=== PATIENT | female | born 1995 | race Caucasian/White ===

== ENCOUNTER 2018-08-05 03:23 | Inpatient (IN) ==
[2018-08-05] MEDS ORDERED: OXYTOCIN 30 UNITS/500 ML BAG IV PRN ×2 (03:44→05:42)
[2018-08-05] MEDS ORDERED: LACTATED RINGER'S 1,000 ML IV PRN (03:44)
[2018-08-05] MEDS ORDERED: ePHEDrine sulfate 50 MG/ML AMP ONE (03:51)
[2018-08-05] MEDS ORDERED: BUPIVACAINE 0.25% 30 ML VIAL ONE (03:51)
[2018-08-05] MEDS ORDERED: fentaNYL citrate 100 MCG/2 ML VIAL ONE (03:52)
[2018-08-05] MEDS ORDERED: fentaNYL 2MCG/ML ROPIV 1.25MG/ML 100 ML BAG EPI ONE (03:52)
[2018-08-05 04:10] LABS: Hematocrit (blood only) 33.6 % (37-47); Mean Corpuscular Volume 77.4 fL (80-100); Mean Platelet Volume 11.6 fL (7.4-10.4); Platelet Count 149 K/uL (130-400); RDW Coefficient of Variation 14.8 % (11.5-14.5); RDW Standard Deviation 42.1 fL (36.4-46.3); Red Blood Count 4.34 M/uL (4.2-5.4); White Blood Count 9.44 K/uL (4.8-10.8)
[2018-08-05 04:13] LABS: Mean Corpuscular Hgb Conc 32.7 g/dL (32-36)
--- NOTE | 2018-08-05 04:59 | History & Physical Report ---
Date of Service August 05, 2018 Assessment & Plan (1) 39 weeks gestation of : Will obtain urine drug screen on admission. Anticipate . Admit to L&D. History of Present Illness Chief Complaint: contractions Primary Care Provider: JAMIA PCP 22yo @ 39 6/7 with increasing contractions. No leaking fluid, no vaginal bleeding. + movement. complicated by maternal marijuana use. Also has +Anti M antibody. Allergies Allergy/AdvReac Type Severity Reaction Status Date / Time amoxicillin Allergy Severe HIVES Verified 07/07/18 19:49 Home Medications Home Medications Medication Instructions Recorded Confirmed Type ondansetron HCl [Zofran] 4 mg PO TID PRN 07/07/18 07/07/18 History vit no.[id number] 1 tab PO DAILY 07/07/18 07/07/18 History [ Vitamin] Patient History Social History Preferred Language: Sami Communication Ability: Effective Dispatch Officer Required: No Beliefs That Will Affect Care: None marital status: Single Current Living Situation: Family and Significant Other Current Living Situation Comment: Lives with S/O and 3 y/o daughter Other Information That Helps Us Care for You: No Feels Safe at Home: Yes Safety Concerns: Feels Safe At This Time Smoking Status: Former smoker Tobacco Type: cigarettes Cigarettes Per Day: 10 Second Hand Exposure: Yes (Pts boyfriend smokes) Hx Alcohol Use: No Hx Substance Use: No Review of Systems All systems reviewed & are unremarkable except as noted in HPI & below Physical Exam Physical Exam: Gen: AAOx3 NAD CV: RRR L: CTAB Abd: soft, gravid, NTTP Ext: no edema FHT: Cat 1 [place]: Q 2-3 min Results & Data Vital Signs (Past 12 Hours) Vital Signs Temp Pulse Resp BP 08/05/18 03:47 71 18 125/79 08/05/18 03:41 36.5 C 08/05/18 03:40 71 125/79
--- NOTE | 2018-08-05 05:02 | Procedure Note ---
Vaginal Delivery Summary Date of Service August 05, 2018 Vaginal Delivery Summary Vaginal Delivery Summary: Pre-delivery diagnoses: 22yo @ 39 6/7, spontaneous labor, maternal marijuana use, Anti-M titers positive Post-delivery diagnoses: same Procedure: spontaneous vaginal delivery Surgeon: Britney Rashid DO Complications: none Findings: Viable female . Apgars: 8/9 . Weight pending, please see nursery records Estimated blood loss: 300ml Description of delivery: The patient progressed to complete without anesthesia. She then began to push. She spontaneously vaginally delivered a viable female from the cephalic presentation. The head delivered in LETITIA position. The anterior shoulder delivered, followed by the posterior shoulder, followed by the body. The baby was placed on mother's abdomen and a spontaneous cry was heard. Delayed cord clamping was employed, and the cord was doubly clamped and cut. Cord blood was obtained. The placenta was delivered spontaneously intact with a 3-vessel cord. The uterus and vagina were swept of clots and debris. IV pitocin was given. The uterus became firm. The cervix, vagina, and perineum were inspected and a superficial left labial laceration was noted, not repaired because it was hemostatic. Excellent hemostasis was observed. The mother and baby are recovering in stable and good condition in the room. Sponge and instrument counts were correct x 2. Britney Rashid [place] [facility] [place]
[2018-08-05] MEDS ORDERED: HYDROCORTISONE ACETATE 25 MG SUPP PR PRN (05:42)
[2018-08-05] MEDS ORDERED: SUPERCREAM 0.870% 15 GM JAR EXT PRN (05:42)
[2018-08-05] MEDS ORDERED: OXYCODONE/ACETAMINOPHEN 5mg/325mg TAB PO PRN (05:42)
[2018-08-05] MEDS ORDERED: DIPHTHERIA/TETANUS/PERTUSSIS 0.5 ML SYR/VIAL IM ONE (05:42)
[2018-08-05] MEDS ORDERED: BISACODYL 10 MG SUPP PR PRN (05:42)
[2018-08-05] MEDS ORDERED: BENZOCAINE 20% AER SPR 82.5 GM CAN EXT PRN (05:42)
[2018-08-05 05:47] LABS: Amphetamines+Metham, Urine Neg (Neg); Barbiturates, Urine Neg (Neg); Benzodiazepine, Urine Neg (Neg); Cocaine, Urine Neg (Neg); MDMA (Ecstacy), Urine Neg (Neg); Methadone, Urine Neg (Neg); Opiate, Urine Neg (Neg); Phencyclidine, Urine Neg (Neg)
[2018-08-05] MEDS: IBUPROFEN 600 MG TAB PO PRN ×2 (06:30→12:16)
[2018-08-05] MEDS: DOCUSATE SODIUM 100 MG CAP PO SCH ×2 (08:53→20:15)
[2018-08-05] MEDS: PRENATAL VITAMIN 1 TAB PO SCH (08:53)
[2018-08-05] MEDS: ACETAMINOPHEN 325 MG TAB PO PRN (16:27)
[2018-08-06] MEDS: ACETAMINOPHEN 325 MG TAB PO PRN ×3 (03:03→18:28)
--- NOTE | 2018-08-06 07:06 | Obstetrical Progress Note ---
Date of Service <Krish Dia - Last Filed: 08/06/18 07:06> August 06, 2018 Assessment & Plan <Krish Dia DO - Last Filed: 08/06/18 07:06> (1) (spontaneous vaginal delivery): -vital signs reviewed and WNL -last Hgb 11.0 -Blood type: A+, GBS-, Rubella Immune -pt doing well clinically -encourage ambulation, monitor and control pain with motrin tylenol, cont regular diet, monitor lochia -cont encourage breast feeding -anticipate d/c tomorrow Subjective <Krish ZayCesia Dia - Last Filed: 08/06/18 07:06> 22 y/o PPD1 found in bed this morning in NAD. Reports no acute overnight events. Pt states that she has no pain other than appropriate soreness. Tolerating PO intake without N/V. Able to ambulate without issue. She is breast feeding without issue. No issues with voiding, no BM yet but passing gas. No other acute concerns or complaints. Review of Systems All systems reviewed & are unremarkable except as noted in HPI & below Physical Exam <Krish Dia - Last Filed: 08/06/18 07:06> Constitutional WD/WN, vitals as above Respiratory normal respiratory effort, lungs clear to auscultation Cardiovascular RRR, no murmur, no edema Gastrointestinal (Abdomen) mild abd tenderness Fundus at U, correlate with attending findings Skin no rashes, warm and dry Psychiatric A+Ox3, euthymic affect Lymphatic no LE swelling, no calf tenderness Results & Data <Krish ZayCesia Dia - Last Filed: 08/06/18 07:06> Vital Signs (Past 12 Hours) Vital Signs Temp Pulse Resp BP Pulse Ox 08/06/18 03:05 36.7 C 65 16 132/85 98 08/05/18 23:00 37 C 76 14 108/65 97 08/05/18 19:25 36.7 C 79 16 123/83 97 Medications Administered Current Inpatient Medications Acetaminophen (Tylenol) 650 mg PO Q6H PRN PRN Reason: Pain/MUNOZ/Fever Stop: 09/04/18 05:41 Last Admin: 08/06/18 03:03 Dose: 650 mg Documented by: Benzocaine (Dermoplast Pain Relieving [place]) 1 appln EXT PRN PRN PRN Reason: Perineal Discomfort Stop: 09/04/18 05:41 Bisacodyl (Dulcolax) 10 mg OR DAILY PRN PRN Reason: No BM on 2nd post- day Stop: 09/04/18 05:41 Bisacodyl (Dulcolax) 5 mg PO 1999 [facility] Stop: 08/06/18 20:01 Cocaine HCl (Supercream 0.870%) 1 gm EXT BID PRN PRN Reason: Hemorrhoidal Inflammation Stop: 08/19/18 05:41 Docusate Sodium (Colace) 100 mg PO DAILY@08, [facility] Stop: 09/04/18 07:59 Last Admin: 08/05/18 20:15 Dose: 100 mg Documented by: Hydrocortisone (Anusol Hc) 25 mg OR BID PRN PRN Reason: Hemorrhoidal Inflammation Stop: 09/04/18 05:41 Oxytocin (Pitocin) 30 units in 500 mls @ 333.333 mls/hr IV .Q1H30M PRN; Protocol PRN Reason: Bleeding Control Stop: 09/04/18 05:41 Last Titration: 08/05/18 06:02 Dose: Infused Documented by: Ibuprofen (Motrin) 600 mg PO Q4H PRN PRN Reason: Pain/MUNOZ/Cramping/Fever Stop: 09/04/18 05:41 Last Admin: 08/05/18 12:16 Dose: 600 mg Documented by: Oxycodone/Acetaminophen (Percocet 5mg/325mg) 1 tab PO Q4H PRN PRN Reason: Pain not relieved by... Stop: 08/19/18 05:41 Prenat Multivit/[place]/Iron/Folic Ac ( Vitamin) 1 tab PO DAILY@08 [facility] Stop: 09/04/18 07:59 Last Admin: 08/05/18 08:53 Dose: 1 tab Documented by: <Jenny Mcneal MD, FACOG - Last Filed: 08/06/18 07:53> Co-Signing Physician Notes Resident Physician Supervision Note: I interviewed and examined the patient. Discussed with Dr. Paulina Dia and agree with findings and plan as documented in the note. Any exceptions or clarifications are listed here: [None] Documented By: Jenny Mcneal MD, FACOG Resident Activity Tracking <Krish Dia, DO - Last Filed: 08/06/18 07:06> Resident Involvement: Resident Care Provided Care Provided: OB Delivery
[2018-08-06 07:15] LABS: Hematocrit (blood only) 31.9 % (37-47); Hemoglobin 10.4 g/dL (12.0-16.0); Mean Corpuscular Hgb Conc 32.6 g/dL (32-36); Mean Corpuscular Volume 78.4 fL (80-100); Mean Platelet Volume 11.9 fL (7.4-10.4); Platelet Count 130 K/uL (130-400); RDW Standard Deviation 42.1 fL (36.4-46.3); Red Blood Count 4.07 M/uL (4.2-5.4); White Blood Count 9.91 K/uL (4.8-10.8)
[2018-08-06] MEDS ORDERED: MEASLES, MUMPS & RUBELLA VIRUS VIAL SQ ONE (07:23)
[2018-08-06] MEDS: DOCUSATE SODIUM 100 MG CAP PO SCH ×2 (07:52→21:00)
[2018-08-06] MEDS: PRENATAL VITAMIN 1 TAB PO SCH (07:52)
[2018-08-06] MEDS ORDERED: BISACODYL 5 MG TABEC PO SCH (20:00)
[2018-08-07] MEDS: ACETAMINOPHEN 325 MG TAB PO PRN (05:26)
--- NOTE | 2018-08-07 07:36 | Obstetrical Progress Note ---
Date of Service <Krish Dia, - Last Filed: 08/07/18 07:36> August 07, 2018 Assessment & Plan <Krish Dia DO - Last Filed: 08/07/18 07:36> (1) (spontaneous vaginal delivery): -vital signs reviewed and WNL -last Hgb 11.0 -Blood type: A+, GBS-, Rubella Immune -pt doing well clinically -encourage ambulation, monitor and control pain with motrin tylenol, cont regular diet, monitor lochia -cont encourage breast feeding -plan for d/c today Subjective <Krish ZayCesia Dia - Last Filed: 08/07/18 07:36> 22 y/o PPD2 found in bed this morning in NAD. Reports no acute overnight events. Pt states that she has no pain other than appropriate soreness. Tolerating PO intake without N/V. Able to ambulate without issue. She is breast feeding without issue. No issues with voiding, no BM yet but passing gas. No other acute concerns or complaints. Pt ok with plan for d/c today. Review of Systems All systems reviewed & are unremarkable except as noted in HPI & below Physical Exam <Krish Dia, - Last Filed: 08/07/18 07:36> Constitutional WD/WN, vitals as above Respiratory normal respiratory effort, lungs clear to auscultation Cardiovascular RRR, no murmur, no edema Gastrointestinal (Abdomen) mild abd tenderness Skin no rashes, warm and dry Psychiatric A+Ox3, euthymic affect Lymphatic no LE swelling, no calf tenderness Results & Data <Krish ZayCesia Dia, - Last Filed: 08/07/18 07:36> Vital Signs (Past 12 Hours) Vital Signs Temp Pulse Resp BP Pulse Ox 08/06/18 23:35 36.5 C 70 16 114/72 97 Medications Administered Current Inpatient Medications Acetaminophen (Tylenol) 650 mg PO Q6H PRN PRN Reason: Pain/MUNOZ/Fever Stop: 09/04/18 05:41 Last Admin: 08/07/18 05:26 Dose: 650 mg Documented by: Benzocaine (Dermoplast Pain Relieving [place]) 1 appln EXT PRN PRN PRN Reason: Perineal Discomfort Stop: 09/04/18 05:41 Bisacodyl (Dulcolax) 10 mg OR DAILY PRN PRN Reason: No BM on 2nd post- day Stop: 09/04/18 05:41 Cocaine HCl (Supercream 0.870%) 1 gm EXT BID PRN PRN Reason: Hemorrhoidal Inflammation Stop: 08/19/18 05:41 Docusate Sodium (Colace) 100 mg PO DAILY@08,21 [facility] Stop: 09/04/18 07:59 Last Admin: 08/06/18 21:00 Dose: 100 mg Documented by: Hydrocortisone (Anusol Hc) 25 mg OR BID PRN PRN Reason: Hemorrhoidal Inflammation Stop: 09/04/18 05:41 Oxytocin (Pitocin) 30 units in 500 mls @ 333.333 mls/hr IV .Q1H30M PRN; Protocol PRN Reason: Bleeding Control Stop: 09/04/18 05:41 Last Titration: 08/05/18 06:02 Dose: Infused Documented by: Ibuprofen (Motrin) 600 mg PO Q4H PRN PRN Reason: Pain/MUNOZ/Cramping/Fever Stop: 09/04/18 05:41 Last Admin: 08/05/18 12:16 Dose: 600 mg Documented by: Oxycodone/Acetaminophen (Percocet 5mg/325mg) 1 tab PO Q4H PRN PRN Reason: Pain not relieved by... Stop: 08/19/18 05:41 Prenat Multivit/[place]/Iron/Folic Ac ( Vitamin) 1 tab PO DAILY@08 [facility] Stop: 09/04/18 07:59 Last Admin: 08/06/18 07:52 Dose: 1 tab Documented by: <Sarmad Tadeo MD - Last Filed: 08/07/18 08:07> Co-Signing Physician Notes Patient seen and evaluated and agree with the above findings and plan. Stable for discharge Resident Activity Tracking <Krish Dia DO - Last Filed: 08/07/18 07:36> Resident Involvement: Resident Care Provided Care Provided: OB Delivery
[2018-08-07 08:00] LABS: Hematocrit (blood only) 32.2 % (37-47); Hemoglobin 10.4 g/dL (12.0-16.0)
[2018-08-07] MEDS: DOCUSATE SODIUM 100 MG CAP PO SCH (09:03)
[2018-08-07] MEDS: PRENATAL VITAMIN 1 TAB PO SCH (09:03)
[2018-08-07] MEDS: IBUPROFEN 600 MG TAB PO PRN (09:03)
== END 2018-08-07 12:00 | disposition home or self-care (01) | DRG 807 ==
LOC: OPB 03:23 → 4S1 03:25 → 4S2 07:42

== ENCOUNTER 2020-12-04 08:22 | Inpatient (IN) ==
[2020-12-04] MEDS ORDERED: OXYTOCIN 30 UNITS/500 ML BAG IV PRN ×2 (08:44)
[2020-12-04] MEDS ORDERED: ceFAZolin 2000MG 2,000 MG/15 ML SYR IV STA (09:00)
[2020-12-04 09:07] LABS: Hematocrit (blood only) 32.1 % (37-47); Hemoglobin 10.3 g/dL (12.0-16.0); Mean Corpuscular Hemoglobin 25.3 pg (25-34); Mean Corpuscular Hgb Conc 32.1 g/dL (32-36); Mean Corpuscular Volume 78.9 fL (80-100); Mean Platelet Volume 10.9 fL (7.4-10.4); Platelet Count 165 K/uL (130-400); RDW Coefficient of Variation 15.4 % (11.5-14.5); RDW Standard Deviation 44.1 fL (36.4-46.3); Red Blood Count 4.07 M/uL (4.2-5.4); White Blood Count 9.91 K/uL (4.8-10.8)
[2020-12-04] MEDS: LACTATED RINGER'S 1,000 ML IV PRN ×2 (09:18→16:28)
[2020-12-04 09:56] LABS: Amphetamines+Metham, Urine Neg (Neg); Barbiturates, Urine Neg (Neg); Benzodiazepine, Urine Neg (Neg); Cocaine, Urine Neg (Neg); MDMA (Ecstacy), Urine Neg (Neg); Methadone, Urine Neg (Neg); Opiate, Urine Neg (Neg); Phencyclidine, Urine Neg (Neg)
--- NOTE | 2020-12-04 12:01 | Labor Progress Brief Note ---
Date of Service December 04, 2020 Subjective Induction ongoing. No request for epidural yet. Planning NCB. Pitocin, Ancef going now. Plan AROM after 2nd dose Ancef. Assessment & Plan Admission and Anticipated Discharge Date Admission Date: December 04, 2020 Physical Exam Genitourinary: FHT reviewed, Cat 1. [place] Q3. Cvx deferred. Results & Data ([facility]) Vital Signs (Past 12 Hours) Vital Signs Temp Pulse Resp BP 12/04/20 11:33 97.7 F 66 20 101/64 12/04/20 08:33 98.1 F 90 20 117/70 12/04/20 08:31 90 117/70 Coding Level of Care Code None
[2020-12-04] MEDS ORDERED: ceFAZolin 1000MG 1,000 MG/7.5 ML SYR IV PRN (16:00)
--- NOTE | 2020-12-04 16:10 | Communication Note ---
Date of Service: December 04, 2020 Tolerating ctx well FHT Cat 1 [place] Q2-3 Cvx /-2 AROM copious clear Continue pitocin, desires NCB
--- NOTE | 2020-12-04 18:17 | Delivery Summary ---
Vaginal Delivery Summary Date of Service December 04, 2020 Vaginal Delivery Summary DIAGNOSES: 1. Coy intrauterine at 40w0d gestation. 2. Induction of Labor, Elective. 3. Group B Streptococcus Pos. PROCEDURE: Spontaneous vaginal delivery without laceration. SURGEON: Roseanne Juarez MD. IT INFRASTRUCTURE ARCHITECT: None. ESTIMATED BLOOD LOSS: 350 mL. COMPLICATIONS: None. PLACENTA: Spontaneous and intact with a 3-vessel cord. DISPOSITION: Stable to labor and delivery. DESCRIPTION: The patient pushed well and brought the head to in OA position. The 's head was allowed to deliver with contraction force and no further active pushing, with the perineum protected during this time. There was one loose nuchal cord. The left shoulder was anterior. The shoulders and body delivered without any difficulty, and the infant was placed on the mat ernal abdomen. It was vigorous and moving all extremities, and making respiratory efforts. The cord was doubly clamped by the MD and then cut by the FOB. The placenta delivered spontaneously and was noted to be intact and with a 3VC. The cervix, vagina and perineum were examined and were found to be without defect requiring repair. The fundus was firm and lochia minimal immediately after delivery. [facility] Vaginal Delivery Charge Vaginal Delivery Codes: 20058 global code for the antepartum, delivery, and post-
[2020-12-04] MEDS ORDERED: HYDROCORTISONE ACETATE 25 MG SUPP PR PRN (18:18)
[2020-12-04] MEDS ORDERED: DIPHTHERIA/TETANUS/PERTUSSIS 0.5 ML SYR/VIAL IM ONE (18:18)
[2020-12-04] MEDS ORDERED: oxyCODONE/ACETAMINOPHEN 5mg/325mg TAB PO PRN (18:18)
[2020-12-04] MEDS ORDERED: BENZOCAINE 20% AER SPR 82.5 GM CAN EXT PRN (18:18)
[2020-12-04] MEDS ORDERED: SUPERCREAM 0.870% 15 GM JAR EXT PRN (18:18)
[2020-12-04] MEDS ORDERED: ACETAMINOPHEN 325 MG TAB PO PRN (18:18)
[2020-12-04] MEDS: IBUPROFEN 600 MG TAB PO PRN (19:38)
[2020-12-04] MEDS: DOCUSATE SODIUM 100 MG CAP PO SCH (21:31)
[2020-12-05] MEDS: IBUPROFEN 600 MG TAB PO PRN ×2 (04:06→11:39)
--- NOTE | 2020-12-05 06:07 | Obstetrical Progress Note ---
Date of Service <Zara Michelle - Last Filed: 12/05/20 06:40> December 05, 2020 Assessment & Plan <Zara Michelle - Last Filed: 12/05/20 06:40> (1) care and examination: 25 yo day1 from [facility], doing well. -Continue routine post care. -vital signs reviewed and WNL (Tmax 37) -Blood Type A+, GBS+, Rubella immune -Encourage ambulation, monitor and control pain with Motrin, tylenol PRN, resume regular diet, monitor lochia -encourage breast feeding -hemoglobin 10.3 (2) Group B streptococcal infection in mother during : Day #:: 1 <Roseanne Juarez MD - Last Filed: 12/05/20 07:21> (1) care and examination: (2) Group B streptococcal infection in mother during : Subjective <Zara Michelle - Last Filed: 12/05/20 06:40> Ambulation: ambulating normally Voiding: no voiding problems Passing Gas:: Yes Diet Tolerance:: regular diet Lochia:: Small Feeding Type:: breast feeding Current Pain Level(1-10): 5 (with cramping heating pad helps) Review of Systems Positive burning with peeing Denies fever, chills, sweats Denies shortness of breath, difficulty breathing, chest pain, palpitations, chest pressure. Denies breast pain. Denies headache or changes in vision. Physical Exam <Zara Michelle - Last Filed: 12/05/20 06:40> General: Alert, oriented. No acute distress. Cardiac: Regular rate and rhythm, no murmurs/rubs/gallops. Respiratory: Clear to auscultation bilaterally a/p, no wheezes/rales/rhonchi. No increased work of breathing. Symmetrical chest rise. No respiratory distress. Abdomen: Soft, nontender, nondistended. Bowel sounds present. Uterus: Uterine fundus firm, palpable 1 cm below umbilicus. Lower Extremities: No lower extremity edema or swelling. No deep calf pain. Yamila's negative bilaterally.. Results & Data ([facility]) <Zarablack Michelle DO - Last Filed: 12/05/20 06:40> Vital Signs (Past 12 Hours) Vital Signs Temp Pulse Pulse Resp BP BP 12/05/20 06:00 66 128/85 12/05/20 04:00 37.0 C 67 18 141/92 H 12/04/20 23:30 37.0 C 62 18 148/98 H 12/04/20 20:35 36.6 C 59 L 18 133/87 12/04/20 19:56 59 L 18 133/87 12/04/20 19:41 65 133/81 12/04/20 19:27 73 18 135/79 12/04/20 19:12 78 142/85 H 12/04/20 18:57 65 18 145/83 H 12/04/20 18:42 64 144/69 H 12/04/20 18:27 68 143/88 H 12/04/20 18:13 71 148/85 H <Roseanne Juarez MD - Last Filed: 12/05/20 07:21> Co-Signing Physician Notes Resident Physician Supervision Note: I interviewed and examined the patient. Discussed with Dr. Michelle and agree with findings and plan as documented in the note. Any exceptions or clarifications are listed here: Patient's BP mildly elevated at several points since delivery was completed. This morning during my visit with her she specifically denied MUNOZ, RUQ pain, vis change or edema. Most recent BP is now normalized at 128/85. Suspicion of pp preE is low but will watch BP today. Assuming she is eligible for discharge at 24hr pp she is interested in that; will prep for this but not place order until this afternoon. Instructions reviewed with patient in the event she does meet the criteria for discharge to home today. Documented By: Roseanne Juarez MD, FACOG Resident Activity Tracking <Zara Michelle DO - Last Filed: 12/05/20 06:40> Resident Involvement: Resident Care Provided Care Provided: OB Delivery
[2020-12-05 06:11] LABS: Hematocrit (blood only) 33.7 % (37-47); Mean Corpuscular Hemoglobin 25.4 pg (25-34); Mean Corpuscular Hgb Conc 32.6 g/dL (32-36); Mean Corpuscular Volume 77.8 fL (80-100); Mean Platelet Volume 10.8 fL (7.4-10.4); Platelet Count 168 K/uL (130-400); RDW Coefficient of Variation 15.4 % (11.5-14.5); RDW Standard Deviation 43.8 fL (36.4-46.3); Red Blood Count 4.33 M/uL (4.2-5.4); White Blood Count 14.39 K/uL (4.8-10.8)
[2020-12-05] MEDS ORDERED: PRENATAL VITAMIN 1 TAB PO SCH (08:00)
[2020-12-05] MEDS: DOCUSATE SODIUM 100 MG CAP PO SCH (08:29)
[2020-12-06 00:02] LABS: Marijuana Quant, GCMS Urine 79 ng/mL (<5)
== END 2020-12-05 19:00 | disposition home or self-care (01) | DRG 807 ==
LOC: 4S1 08:22 → 4S2 09:55 → 4S1 09:56 → 4S2 20:44